=== PATIENT | female | born 1960 | race Caucasian/White ===

== ENCOUNTER → 2017-09-12 | Outpatient (CLI) | payer OTHER ==
[~2017-09-12] MED LIST: ALBU8.5H8 INH; ARNICARE TD; NAPR220C2 PO; PROG100C16 PO; THYR60TA4 PO; [UNRECOGNIZED DRUG - OTHER] PO
[2017-09-12 10:52] LABS: HEMOGLOBIN 15.8 g/dL (11.7-16.4); WHITE BLOOD COUNT 6.7 x10^3/uL (3.4-10)
[2017-09-12 11:02] LABS: BLOOD UREA NITROGEN 9 mg/dL (7-18)
== END | disposition home or self-care (01) ==
LOC: STAR 09:35
PROVIDERS: ATTEND Obstetrics & Gynecology Gynecology
DX: Z01.818 Encounter for other preprocedural examination (principal); N85.2 Hypertrophy of uterus; N92.0 Excessive and frequent menstruation with regular cycle
CPT/HCPCS: 36415; 80048; 81001; 84703; 85025

== ENCOUNTER 2017-09-19 07:06 | Day surgery (SDC) | payer OTHER ==
[~2017-09-19] VITALS: Ht 162.6 cm; Wt 97.5 kg
[2017-09-19] MEDS ORDERED: LACTATED RINGERS 1,000 ML IV SCH (07:44)
[2017-09-19] MEDS ORDERED: FENTANYL PF 100 MCG/2ML ONE ×3 (08:01→11:24)
[2017-09-19] MEDS ORDERED: MIDAZOLAM 1 MG/ML, 2ML ONE (08:01)
[2017-09-19] MEDS ORDERED: DEXAMETHASONE 4 MG/ML, 1ML ONE (08:06)
[2017-09-19] MEDS ORDERED: ROCURONIUM 10 MG/ML ONE (08:06)
[2017-09-19] MEDS ORDERED: PROPOFOL 10 MG/ML, 20ML ONE (08:06)
[2017-09-19] MEDS ORDERED: ONDANSETRON 2MG/ML, 2ML ONE (08:06)
[2017-09-19] MEDS ORDERED: GLYCOPYRROLATE 0.2MG/1ML, 5ML ONE (08:06)
[2017-09-19] MEDS ORDERED: SUCCINYLCHOLINE 20 MG/ML, 10ML ONE (08:06)
[2017-09-19] MEDS ORDERED: CEFAZOLIN 1,000 MG ONE (08:06)
[2017-09-19] MEDS ORDERED: NEOSTIGMINE 1 MG/ML, 10ML ONE (08:06)
[2017-09-19] MEDS ORDERED: LIDOCAINE GEL 2%, 5ML ONE (08:08)
[2017-09-19 08:15] LABS: HCG UR LOT HCG7030192
[2017-09-19 08:18] VITALS: BP 107/80
[2017-09-19 08:40] LABS: HCG UR OBC PASS
[2017-09-19] MEDS ORDERED: EPINEPHRINE 1 MG/ML, 1ML ONE (09:06)
[2017-09-19] MEDS ORDERED: FLUORESCEIN SODIUM 500 MG/5 ML ONE (09:06)
[2017-09-19] MEDS ORDERED: LIDOCAINE/PF 1%, 30ML ONE (09:06)
[2017-09-19] MEDS ORDERED: PHENYLEPHRINE 10 MG/ML ONE (09:08)
[2017-09-19] MEDS ORDERED: HYDROmorphone 2 MG/ML, 1ML ONE (09:39)
[2017-09-19] MEDS ORDERED: KETOROLAC 30 MG/1 ML ONE (09:40)
[2017-09-19] MEDS ORDERED: MIDAZOLAM 1 MG/ML, 2ML IV PRN (10:00)
[2017-09-19] MEDS ORDERED: ONDANSETRON 2MG/ML, 2ML IVPush PRN (10:00)
[2017-09-19] MEDS ORDERED: hydrALAzine 20 MG/ML, 1ML IV PRN (10:00)
[2017-09-19] MEDS ORDERED: HYDROmorphone 1 MG/ML, 1ML IV PRN (10:00)
[2017-09-19] MEDS ORDERED: FENTANYL PF 100 MCG/2ML IV PRN (10:00)
[2017-09-19] MEDS ORDERED: ALBUTEROL/IPRATROPIUM 2.5MG/0.5MG, 3 ML NPPB PRN (10:00)
[2017-09-19] MEDS ORDERED: PROMETHAZINE 25 MG/ML, 1ML IV PRN (10:00)
[2017-09-19] MEDS ORDERED: MEPERIDINE/PF 25MG/0.5ML IVPush PRN (10:00)
[2017-09-19] MEDS ORDERED: LORazepam 2 MG/ML, 1ML IVPush PRN (10:00)
[2017-09-19] MEDS ORDERED: OXYcodone 5 MG/5 ML ORAL.SOL UDC PO PRN (10:00)
[2017-09-19] MEDS ORDERED: ACETAMINOPHEN 325 MG TABLET PO PRN (10:00)
[2017-09-19] MEDS ORDERED: LABETALOL 5MG/ML, 20ML IV PRN (10:00)
[2017-09-19] MEDS ORDERED: DIAZEPAM 5 MG/ML, 2ML IVPush PRN (10:00)
[2017-09-19] MEDS ORDERED: OXYcodone 5 MG/5 ML ORAL.SOL UDC ONE (11:19)
[2017-09-19] MEDS ORDERED: ACETAMINOPHEN 650 MG/20.3 ML UDC ONE (11:19)
== END 2017-09-19 17:00 ==
LOC: OUT 07:06
PROVIDERS: ATTEND Obstetrics & Gynecology Gynecology
DX: N92.1 Excessive and frequent menstruation with irregular cycle (principal); N85.2 Hypertrophy of uterus; Z98.42 Cataract extraction status, left eye; Z98.41 Cataract extraction status, right eye; Z98.890 Other specified postprocedural states
CPT/HCPCS: 36415; 58270; 81025; 85014; 88307; J0171; J0330; J0690; J1100; J1170; J1885; J2370; J2405; J2704; J3010; J3490; J7120; J2250; J2710

== ENCOUNTER 2019-09-21 12:09 | Outpatient (CLI) | payer OTHER | END 2019-09-21 23:59 | disposition home or self-care (01) | LOC: CFH 12:09 | PROVIDERS: ATTEND Obstetrics & Gynecology | DX: Z12.31 Encounter for screening mammogram for malignant neoplasm of breast (principal) | CPT/HCPCS: 77067 ==